=== PATIENT | female | born 1990 | race African-American/Black ===

== ENCOUNTER 2023-06-05 21:25 | Outpatient (REF) | payer OTHER, SELFPAY ==
[2023-06-10 12:08] LABS: Age Gdln ACOG Testing Note (.); HPV Aptima Negative (Negative); IGP, Aptima HPV, rfx 16/18,45 Note (.)
== END 2023-06-05 21:26 | disposition home or self-care (01) ==
LOC: LAB 21:25
PROVIDERS: Visit Provider Physician Assistant
DX: Z01.419 Encounter for gynecological examination (general) (routine) without abnormal findings (principal)
CPT/HCPCS: G0145

== ENCOUNTER 2024-07-22 09:04 | Emergency (ER) | payer OTHER, SELFPAY ==
[2024-07-22 09:10] VITALS: BP 136/85; PULSE 103; TEMP 36.6; O2SAT 98; BMI 32.8
--- NOTE | 2024-07-22 09:25 | US_ITS ---
[address] [address] Patient Name: ISAC CORONA MRN: [id number] date: 1990 Sex: F Assigned Patient Location: ER Current Patient Location: ER Accession/Order Number: [id number] Exam Date: 07/22/2024 09:30 Report Date: 07/22/2024 10:21 At the request of: RICK SAMANIEGO Procedure: US right upper quadrant EXAM: US right upper quadrant HISTORY: RUQ pain COMPARISON: None. TECHNIQUE: Grayscale, color and Doppler FINDINGS: The liver is normal in size, contour and echotexture. No focal mass. Hepatopedal flow in the main portal vein with a velocity of 40 cm/s. The visualized gallbladder is normal. The wall measures 1.1 mm. Negative sonographic Emanuel sign. The common bile duct measures 3.2 mm. No cholelithiasis The visualized pancreas is normal. The pancreatic head is not visualized due to bowel gas The right kidney is normal measuring 9.7 x 3.7 x 4.5 cm US/US right upper quadrant IMPRESSION: No acute abnormality Electronically authenticated by: JACIEL CEJA Date: 07/22/2024 10:21
--- NOTE | 2024-07-22 09:36 | ED_ITS ---
HPI HPI - General Adult General Chief complaint: Abdominal Pain Stated complaint: ABDOMINAL PAIN Time Seen by Provider: 07/22/24 09:13 Source: patient Mode of arrival: walk-in Limitations: no limitations History of Present Illness HPI narrative: Patient presents ED complaining of upper abdominal pain and slight right upper quadrant pain. She said it started yesterday and has been causing some nausea but no vomiting. She states she has never really had this before. No history of GERD. She is not on any acid inhibitors or nausea medication. She does have a history of a but no other abdominal surgeries. She still has her appendix and her gallbladder. She said the pain hurts worse if she pushes on it or takes a deep breath. No fever. She said it started yesterday sort of out of the blue, not specifically after eating or anything like that that she can remember. Related Data Previous Rx's ?Medication ?Instructions ?Recorded famotidine 20 mg tablet (Pepcid) 20 mg PO DAILY 14 days #14 tabs 07/22/24 Allergies Allergy/AdvReac Type Severity Reaction Status Date / Time guaifenesin (From Robitussin) AdvReac Intermediate Hives Verified 07/22/24 09:14 Opioid HPI Opioid Management Most Recent Opioid Data: No Data to Display Review of Systems ROS Status of ROS 10 or more systems reviewed and unremark able except as noted in history and below PFSH PFSH Social History Little interest or pleasure in doing things: not at all Feeling down, depressed, or hopeless: not at all Exam Narrative Exam Narrative: General: alert, no acute distress Cardiovascular: regular rate and rhythm, normal peripheral perfusion. Respiratory: Lungs CTA, respirations non labored. Extremities: no deformity, no trauma. Neurological: oriented x 4, LOC appropriate for age. Abdomen soft. Mild epigastric tenderness mild right upper quadrant tenderness. No rebound no guarding Constitutional Vital Signs, click to edit/add: Last Vital Signs Temp 98 F 07/22/24 09:10 Pulse 76 07/22/24 10:26 Resp 18 07/22/24 10:26 BP 116/72 07/22/24 10:26 Pulse Ox 100 07/22/24 10:26 O2 Del Method Room Air 07/22/24 09:10 Course Vital Signs Vital signs: Vital Signs Temperature 98 F 07/22/24 09:10 Pulse Rate 103 H 07/22/24 09:10 Respiratory Rate 18 07/22/24 09:10 Blood Pressure 136/85 07/22/24 09:10 Pulse Oximetry 98 07/22/24 09:10 Oxygen Delivery Method Room Air 07/22/24 09:10 Temperature 98 F 07/22/24 09:10 Pulse Rate 76 07/22/24 10:26 Respiratory Rate 18 07/22/24 10:26 Blood Pressure 116/72 07/22/24 10:26 Pulse Oximetry 100 07/22/24 10:26 Oxygen Delivery Method Room Air 07/22/24 09:10 Medical Decision Making MDM Narrative Medical decision making narrative: Patient's labs and imaging are negative for acute findings. Patient does not have any evidence of cholecystitis or kidney stone. Labs are negative for any acute findings. Possibly gastritis. Will trial patient on 2 weeks of Pepcid to see if it helps. Return to ED if worsening symptoms otherwise follow-up with family doctor. Patient's comfortable care plan for home Differential Diagnosis Differential Diagnosis: Acute cholecystitis, gastritis, peptic ulcer disease, GERD, kidney stone, p Medical Records Medical records reviewed: Yes I reviewed the patient's medical records Lab Data Lab results reviewed: Yes I reviewed the patient's lab results Labs: Lab Results 07/22/24 07/22/24 Range/Units 09:20 09:35 WBC 4.4 (4.0-11.0) 10^3/uL RBC 4.63 (4.20-5.40) 10^6/uL Hgb 14.6 (12.0-16.0) g/dL Hct 43.7 (36.0-48.0) % MCV 94.4 (81.0-99.0) fL MCH 31.5 (26.7-34.0) pg MCHC 33.4 (29.9-35.2) g/dL RDW 12.0 (11.0-15.0) % Plt Count 284 (150-450) 10^3/uL MPV 10.6 (9.5-13.5) fL Neut % (Auto) 58.7 (43.0-75.0) % Lymph % (Auto) 32.7 (20.5-60.0) % [place] % (Auto) 6.6 (1.7-12.0) % Eos % (Auto) 1.6 (0.9-7.0) % Baso % (Auto) 0.2 (0.2-2.0) % Neut # (Auto) 2.6 (1.4-6.5) 10^3/uL Lymph # (Auto) 1.4 (1.2-3.8) 10^3/uL [place] # (Auto) 0.3 (0.3-0.8) 10^3/uL Eos # (Auto) 0.1 (0.0-0.7) 10^3/uL Baso # (Auto) 0.0 (0.0-0.1) 10^3/uL Abs Immat Gran (auto) 0.01 (0.00-0.03) 10^3/uL Imm/Tot Granulo (auto) 0.2 (0.0-0.5) % Sodium 140 (136-145) mmol/L Potassium 3.9 (3.5-5.1) mmol/L Chloride 105 (98-107) mmol/L Carbon Dioxide 23.1 (21.0-32.0) mmol/L Anion Gap 15.8 BUN 9.0 (7.0-18.0) mg/dL Creatinine 0.96 (0.55-1.02) mg/dL Est GFR ( Amer) >60 (>=60 mL/min/1.73m^2) Est GFR (Non-Af Amer) >60 (>=60 mL/min/1.73m^2) BUN/Creatinine Ratio 9.4 Glucose 81 (74-106) mg/dL Calcium 8.4 L (8.5-10.1) mg/dL Total Bilirubin 0.6 (0.2-1.0) mg/dL AST 18 (15-37) U/L ALT 32 (14-59) U/L Alkaline Phosphatase 71 (46-116) U/L Total Protein 7.8 (6.4-8.2) g/dL Albumin 3.5 (3.4-5.0) g/dL Globulin 4.3 g/dL Albumin/Globulin Ratio 0.8 Urine Color Yellow (YELLOW) Urine Clarity Clear (CLEAR) Urine pH 6.5 (5.0-9.0) Ur Specific [place] 1.025 (1.005-1.025) Urine Protein Negative (NEG/TRACE) mg/dL Urine Glucose (UA) Negative (NEGATIVE) mg/dL Urine Ketones Trace A (NEGATIVE) mg/dL Urine Occult Blood Negative (NEGATIVE) Urine Nitrite Negative (NEGATIVE) Urine Bilirubin Negative (NEGATIVE) Urine Urobilinogen 1.0 (0.2-1.0) EU/dL Ur Leukocyte Esterase Negative (NEGATIVE) Urine HCG, Qual Negative (NEGATIVE) Imaging Data US - abdomen: Radiologist's impression: ITS Impressions Upper Quadrant Ultrasound 07/22/24 09:25 IMPRESSION: No acute abnormality Electronically authenticated by: JACIEL CEJA Date: 07/22/2024 10:21 Discharge Plan Discharge Chief Complaint: Abdominal Pain Clinical Impression: Gastritis Patient Disposition: Home, Self-Care Time of Disposition Decision: 10:31 Condition: Good Mode of Transportation: Private Vehicle Prescriptions / Home Meds: New famotidine [Pepcid] 20 mg tablet 20 mg PO DAILY 14 Days Qty: 14 0RF Print Language: [place] Instructions: Gastritis (ED) Referrals: Physician,Non-Staff, MD [Physician] - 1 week
[2024-07-22 09:52] LABS: Basophils Percent Auto 0.2 % (0.2-2.0); Eosinophils Absolute Auto 0.1 10^3/uL (0.0-0.7); Eosinophils Percent Auto 1.6 % (0.9-7.0); Hematocrit 43.7 % (36.0-48.0); Hemoglobin 14.6 g/dL (12.0-16.0); Immature Granulocytes Abs Auto 0.01 10^3/uL (0.00-0.03); Immature Granulocytes Pct Auto 0.2 % (0.0-0.5); Lymphocytes Absolute Auto 1.4 10^3/uL (1.2-3.8); Lymphocytes Percent Auto 32.7 % (20.5-60.0); Mean Corpuscular HGB Conc 33.4 g/dL (29.9-35.2); Mean Corpuscular Hemoglobin 31.5 pg (26.7-34.0); Mean Corpuscular Volume 94.4 fL (81.0-99.0); Mean Platelet Volume 10.6 fL (9.5-13.5); Monocytes Absolute Auto 0.3 10^3/uL (0.3-0.8); Monocytes Percent Auto 6.6 % (1.7-12.0); Neutrophils Absolute Auto 2.6 10^3/uL (1.4-6.5); Neutrophils Percent Auto 58.7 % (43.0-75.0); Platelet Count 284 10^3/uL (150-450); Red Blood Count 4.63 10^6/uL (4.20-5.40); White Blood Count 4.4 10^3/uL (4.0-11.0)
[2024-07-22 09:55] LABS: HCG Qualitative Urine* NEGATIVE (NEGATIVE); Internal Control Within Normal Limits
[2024-07-22 09:56] LABS: Bilirubin Urine NEGATIVE (NEGATIVE); Blood Urine NEGATIVE (NEGATIVE); Clarity Urine CLEAR (CLEAR); Color Urine YELLOW (YELLOW); Glucose Urine UA NEGATIVE (NEGATIVE); Ketones Urine TRACE mg/dL (NEGATIVE); Leukocyte Esterase Urine NEGATIVE (NEGATIVE); Nitrite Urine NEGATIVE (NEGATIVE); Protein Urine NEGATIVE (NEG/TRACE); Specific Gravity Urine 1.025 (1.005-1.025); Urine Microscopic Indicated NO; pH Urine 6.5 (5.0-9.0)
[2024-07-22 10:09] LABS: Alanine Aminotransferase 32 U/L (14-59); Albumin Globulin Ratio 0.8; Albumin Level 3.5 g/dL (3.4-5.0); Alkaline Phosphatase 71 U/L (46-116); Anion Gap 15.8; Aspartate Amino Transferase 18 U/L (15-37); BUN Creatinine Ratio 9.4; Bilirubin Total 0.6 mg/dL (0.2-1.0); Calcium 8.4 mg/dL (8.5-10.1); Carbon Dioxide 23.1 mmol/L (21.0-32.0); Chloride 105 mmol/L (98-107); Estimated GFR (African America >60 (>=60 mL/min/1.73m^2); Estimated GFR (Non-African Ame >60 (>=60 mL/min/1.73m^2); Globulin 4.3 g/dL; Glucose 81 mg/dL (74-106); Potassium 3.9 mmol/L (3.5-5.1); Sodium 140 mmol/L (136-145); Total Protein 7.8 g/dL (6.4-8.2)
[2024-07-22 10:26] VITALS: BP 116/72; PULSE 76; O2SAT 100
== END 2024-07-22 10:39 | disposition home or self-care (01) ==
PROVIDERS: Emergency Provider Emergency Medicine
DX: K29.70 Gastritis, unspecified, without bleeding (principal)
CPT/HCPCS: 36415; 76705; 80053; 81003; 83690; 84703; 85025; 99284

== ENCOUNTER 2024-12-15 08:41 | Emergency (ER) | payer SELFPAY ==
[2024-12-15 08:46] VITALS: BP 128/82; PULSE 80; TEMP 36.7; O2SAT 99; BMI 33.7
--- NOTE | 2024-12-15 08:52 | ED.GENADUL1 ---
HPI HPI - General Adult General Chief complaint: Back Pain/Injury Stated complaint: BACK PAIN Time Seen by Provider: 12/15/24 08:49 Source: patient Mode of arrival: walk-in Limitations: no limitations History of Present Illness HPI narrative: 34-year-old female presents for bilateral lower back pain. She has had it for 5 days and there is been no precipitating injury or unusual activity. No dysuria or hematuria and the pain does not radiate into her legs. She does not have a history of back issues. It is worse in certain positions and moderate. Related Data Previous Rx's ?Medication ?Instructions ?Recorded etodolac 400 mg tablet 400 mg PO Q8H PRN pain #20 tabs 12/15/24 methocarbamol 750 mg tablet 750 mg PO Q8H #20 tabs 12/15/24 Allergies Allergy/AdvReac Type Severity Reaction Status Date / Time guaifenesin (From Robitussin) AdvReac Intermediate Hives Verified 12/15/24 08:51 Opioid HPI Opioid Management Most Recent Opioid Data: No Data to Display Review of Systems ROS Narrative A ten point review of systems is negative except as noted above. PFSH PFSH Social History Little interest or pleasure in doing things: not at all Feeling down, depressed, or hopeless: not at all Exam Narrative Exam Narrative: Nurses note and vital signs reviewed and patient is not hypoxic. General: The patient sitting upright on the cart. Skin: Warm, dry, no pallor noted. There is no rash noted. Head: Normocephalic, atraumatic Eye: Normal conjunctiva, no drainage Ears, Nose, Mouth, and Throat: oral mucosa is moist. Nares patent. Cardiovascular: Regular Rate and Rhythm Respiratory: Patient is in no distress, no accessory muscle use, lungs are clear to auscultation, no wheezing, rales or rhonchi Back: No bruise or rash or palpable tenderness GI: Soft and nontender Musculoskeletal: No joint swelling Neurological: A&O, normal speech Psychiatric: Cooperative Constitutional Vital Signs, click to edit/add: Last Vital Signs Temp 98.1 F 12/15/24 08:46 Pulse 80 12/15/24 08:46 Resp 20 12/15/24 08:46 BP 128/82 12/15/24 08:46 Pulse Ox 99 12/15/24 08:46 O2 Del Method Room Air 12/15/24 08:46 Course Vital Signs Vital signs: Vital Signs Temperature 98.1 F 12/15/24 08:46 Pulse Rate 80 12/15/24 08:46 Respiratory Rate 20 12/15/24 08:46 Blood Pressure 128/82 12/15/24 08:46 Pulse Oximetry 99 12/15/24 08:46 Oxygen Delivery Method Room Air 12/15/24 08:46 Temperature 98.1 F 12/15/24 08:46 Pulse Rate 80 12/15/24 08:46 Respiratory Rate 20 12/15/24 08:46 Blood Pressure 128/82 12/15/24 08:46 Pulse Oximetry 99 12/15/24 08:46 Oxygen Delivery Method Room Air 12/15/24 08:46 Medical Decision Making MDM Narrative Medical decision making narrative: Her workup is negative. X-rays show no acute process and the minimal amount of blood in her urine is from her period. She is not . She is given IM Toradol and prescribed Lodine and Robaxin. Treatment diagnosis and follow-up were discussed with the patient. Differential Diagnosis Differential Diagnosis: UTI, lumbar strain, compression fracture Lab Data Lab results reviewed: Yes I reviewed the patient's lab results Labs: Lab Results 12/15/24 Range/Units 08:55 Urine Color Yellow (YELLOW) Urine Clarity Clear (CLEAR) Urine pH 6.0 (5.0-9.0) Ur Specific [place] >=1.030 A (1.005-1.025) Urine Protein Negative (NEG/TRACE) mg/dL Urine Glucose (UA) Negative (NEGATIVE) mg/dL Urine Ketones Negative (NEGATIVE) mg/dL Urine Occult Blood Moderate A (NEGATIVE) Urine Nitrite Negative (NEGATIVE) Urine Bilirubin Negative (NEGATIVE) Urine Urobilinogen 0.2 (0.2-1.0) EU/dL Ur Leukocyte Esterase Negative (NEGATIVE) Urine RBC 5-10 A (0-2) #/HPF Urine WBC 0-2 A (NONE SEEN) #/HPF Ur Squamous Epith Cells Few A (NONE/RARE) #/LPF Urine Crystals None seen (None Seen) #/HPF Urine Bacteria Trace A (NONE SEEN) #/HPF Urine Casts None seen (NONE SEEN) #/LPF Urine Mucus Small A (NONE SEEN) Urine HCG, Qual Negative (NEGATIVE) Imaging Data Lumbar x-rays: Radiologist's impression: No acute process Discharge Plan Discharge Chief Complaint: Back Pain/Injury Clinical Impression: Low back pain Patient Disposition: Home, Self-Care Time of Disposition Decision: 09:36 Condition: Good Mode of Transportation: Private Vehicle Prescriptions / Home Meds: New methocarbamol 750 mg tablet 750 mg PO Q8H Qty: 20 0RF etodolac 400 mg tablet 400 mg PO Q8H PRN (Reason: pain) Qty: 20 0RF Print Language: Cypriot Instructions: Acute Low Back Pain (ED) Referrals: [facility] [place] [Primary Care Provider] - 1 week
[2024-12-15 09:05] LABS: Bilirubin Urine NEGATIVE (NEGATIVE); Blood Urine MODERATE (NEGATIVE); Clarity Urine CLEAR (CLEAR); Color Urine YELLOW (YELLOW); Glucose Urine UA NEGATIVE (NEGATIVE); Ketones Urine NEGATIVE (NEGATIVE); Leukocyte Esterase Urine NEGATIVE (NEGATIVE); Nitrite Urine NEGATIVE (NEGATIVE); Protein Urine NEGATIVE (NEG/TRACE); Specific Gravity Urine >=1.030 (1.005-1.025); Urobilinogen Urine 0.2 EU/dL (0.2-1.0)
[2024-12-15 09:08] LABS: HCG Qualitative Urine* NEGATIVE (NEGATIVE); Internal Control Within Normal Limits
[2024-12-15 09:11] LABS: WBC Urine 0-2 #/HPF (NONE SEEN)
[2024-12-15 09:12] LABS: Bacteria Urine TRACE #/HPF (NONE SEEN); Mucus Urine SMALL (NONE SEEN); Squamous Epithelial Cell Urine FEW #/LPF (NONE/RARE)
[2024-12-15 09:13] LABS: Cast Seen? NONE SEEN #/LPF (NONE SEEN); Crystals Seen? None Seen #/HPF (None Seen)
--- OUTSIDE RECORDS SUMMARY | 2024-12-15 09:29 | XMS_ITS | CCD ---
Author Organization [facility] Care Team Providers Care [employer] Driver Name Role Phone ZAY, DR FARIA Admitting Unavailable REQUEST, DR RICHARD LISTED Primary Care Unavaila ble ZAY, DR FARIA Attending Unavailable ZAY, DR FARIA Attending Unavailable ZAY, DR FARIA Consulting Unavailable REQUEST, DR JOSE MANUEL LISTED Primary Care Unavaila ble ZAY, DR FARIA Admitting Unavailable ZAY, DR FARIA Consulting Unavailable ZAY, DR FARIA Admitting Unavailable REQUEST, DR RICHARD LISTED Primary Care Unavaila ble ZAY, DR FARIA Attending Unavailable Unavailable Primary Care Provider UnavailBIENVENIDO Whyte Attending Unavailable ZAY, BIENVENIDO Attending Unavailable OPHELIABOBY PHAM Attending Unavailable Allergies Allergy Classification Reported Allergen(s) Allergy Type Date of Onset Reaction(s) Facility (2 sources) Robitussin Cough AND Cold Drug allergy (disorder) 4 [facility] Repository (2 sources) Dextromethorphan Drug Allergy 5 Rash [facility] Healthcare (2 sources) guaiFENesin Drug Allergy 7 Itching [facility] Medications Current Medications Medication Drug Class(es) Dates Sig (Normalized) Sig (Original) 24 hr metFORMIN hydrochloride 500 mg extended release oral tablet (2 sources) Biguanide Start: 10-30-2023 End: 10-29-2024 take 1 tablet by mouth every twenty-four hours at mealtime metFORMIN XR (Glucophage-XR) 500 MG 24 hr tablet Indications: PCOS (polycystic ovarian syndrome) , Insulin resistance Take 1 tablet (500 mg) by mouth in the evening. Take with meals Do not crush, chew, or split. 30 tablet 11 10/30/2023 10/29/2024 Active Completed/Discontinued Medications Medication Drug Class(es) Dates Sig (Normalized) Sig (Original) citalopram 20 mg oral tablet (2 sources) Serotonin Reuptake Inhibitor Start: 06-05-2023 End: 10-30-2023 take 1 tablet by mouth in the morning citalopram (CeleXA) 20 MG tablet Indications: Depression with anxiety Take 1 tablet (20 mg) by mouth in the morning. 30 tablet 11 06/05/2023 10/30/2023 Discontinued (Other) omeprazole 20 mg delayed release oral capsule (2 sources) Proton Pump Inhibitor Start: 07-04-2023 End: 10-30-2023 omeprazole (PriLOSEC) [address] capsule 1 (one) time each day at the same time 0 07/04/2023 10/30/2023 Discontinued (Other) Problems Active Problems Problem Classification Problem Date Documented Da te Episodic/Chronic Contraceptive and procreative management (8 sources) Encounter for procreative management, unspecified; Translations: [Patient encounter status] Onset: 07-09-2022 Episodic Other endocrine disorders (2 sources) Polycystic ovary syndrome; Translations: [Polycystic ovarian syndrome] 10-30-2023 Chronic Other nutritional; endocrine; and metabolic disorders (2 sources) Insulin resistance; Translations: [Insulin resistance] 10-30-2023 Chronic Past or Other Problems Problem Classification Problem Date Documented Date Episodic/Chronic Immunizations and screening for infectious disease (1 source) Encounter for screening for human papillomavirus (HPV); Translations: [ENC SCREENING HUMAN PAPILLOMAVIRUS] Onset: 03-28-2022 Episodic Other screening for suspected conditions (not mental disorders or infectious disease) (4 sources) Encounter for screening for malignant neoplasm of cervix; Translations: [ENC SCREENING MALIG NEOPLASM CERV] Onset: 2022 Episodic Results Test Name Value Interpretation Reference Range Facility DHEA SERUMon 07-12-2022 Dehydroepiandrosterone (DHEA) 339 ng/dL Normal 31-701 [facility] Comment on above: Result Comment: Age 1 - 5 years 0 - 67 6 - 7 years 0 - 110 8 - 10 years 0 - 185 11 - 12 years 0 - 201 13 - 14 years 0 - 318 15 - 16 years 39 - 481 17 - 19 years 40 - 491 >19 years 31 - 701 Performed By: #### D PHAN. #### [facility] [address] [place] [address] Dr. Myrtle Riggs DHEA-SULFATEon 07-10-2022 DHEA-Sulfate 415.0 ug/dL Critically high 84.8-378.0 [facility] Comment on above: Performed By: #### D NIKKI #### [facility] [address] [place] [address] Dr. Myrtle Riggs FSHon 07-10-2022 FSH 13.4 mIU/mL Normal [facility] Comment on above: Result Comment: Adul t Female: Follicular phase 3.5 - 12.5 Ovulation phase 4.7 - 21.5 Luteal phase 1.7 - 7.7 Postmenopausal 25.8 - 134.8 Performed By: #### [facility] #### [facility] [address] [place] [address] Dr. Myrtle Riggs LUTEINIZING HORMONE (LH)on LH 9.8 mIU/mL Normal [facility] Comment on above: Result Comment: Adul t Female: Follicular phase 2.4 - 12.6 Ovulation phase 14.0 - 95.6 Luteal phase 1.0 - 11.4 Postmenopausal 7.7 - 58.5 Performed By: #### L BCL #### [facility] [address] [place] [address] Dr. Myrtle Riggs CBC AUTO DIFFon 07-09-2022 BASO # 0.0 103/ul Normal 0.0-0.1 [facility] Comment on above: Performed By: #### C BC #### [facility] [address] [place] [address] Dr. Myrtle Riggs Basophils/100 WBC (Bld) 0.3 % Normal 0.2-2.0 [facility] Comment on above: Performed By: #### C BC #### [facility] [address] [place] [address] Dr. Myrtle Riggs EO # 0.1 103/ul Normal 0.0-0.7 [facility] Comment on above: Performed By: #### C BC #### [facility] [address] [place] [address] Dr. Myrtle Riggs Eosinophils/100 WBC (Bld) 2.5 % Normal 0.9-7.0 [facility] Comment on above: Performed By: #### C BC #### [facility] [address] [place] [address] Dr. Myrtle Riggs Erythrocyte distribution width (RBC) [Ratio] 12.5 % Normal 11.0-15.0 [facility] Comment on above: Performed By: #### C BC #### [facility] [address] [place] [address] Dr. Myrtle Riggs Hematocrit (Bld) [Volume fraction] 40.8 % Normal 36.0-48.0 [facility] Comment on above: Performed By: #### C BC #### [facility] [address] [place] [address] Dr. Myrtle Riggs Hemoglobin (Bld) [Mass/Vol] 13.5 g/dL Normal 12.0-16.0 [facility] Comment on above: Performed By: #### C BC #### [facility] [address] [place] [address] Dr. Myrtle Riggs IG # 0.01 10e3/ul Normal 0.00-0.03 [facility] Comment on above: Performed By: #### C BC #### [facility] [address] [place] [address] Dr. Myrtle Riggs IG % 0.3 % Normal 0.0-0.5 [facility] Comment on above: Performed By: #### C BC #### [facility] [address] [place] [address] Dr. Myrtle Riggs LYMPH # 1.4 103/ul Normal 1.2-3.8 [facility] Comment on above: Performed By: #### C BC #### [facility] [address] [place] [address] Dr. Myrtle Riggs Lymphocytes/100 WBC (Bld) 36.2 % Normal 20.5-60.0 [facility] Comment on above: Performed By: #### C BC #### [facility] [address] [place] [address] Dr. Myrtle Riggs MANUAL DIFF REQ NO Normal [facility] Comment on above: Performed By: #### C BC #### [facility] [address] [place] [address] Dr. Myrtle Riggs MCH (RBC) [Entitic mass] 31.7 pg Normal 26.7-34.0 [facility] Comment on above: Performed By: #### C BC #### [facility] [address] [place] [address] Dr. Myrtle Riggs MCHC (RBC) [Mass/Vol] 33.1 g/dL Normal 29.9-35.2 [facility] Comment on above: Performed By: #### C BC #### [facility] [address] [place] [address] Dr. Myrtle Riggs MCV (RBC) [Entitic vol] 95.8 fL Normal 81.0-99.0 [facility] Comment on above: Performed By: #### C BC #### [facility] [address] [place] [address] Dr. Myrtle Riggs MONO # 0.4 103/ul Normal 0.3-0.8 [facility] Comment on above: Performed By: #### C BC #### [facility] [address] [place] [address] Dr. Myrtle Riggs Monocytes/100 WBC (Bld) 9.6 % Normal 1.7-12.0 [facility] Comment on above: Performed By: #### C BC #### [facility] [address] [place] [address] Dr. Myrtle Riggs NEUT # 2.0 103/ul Normal 1.4-6.5 [facility] Comment on above: Performed By: #### C BC #### [facility] [address] [place] [address] Dr. Myrtle Riggs Neutrophils/100 WBC (Bld) 51.1 % Normal 43.0-75.0 [facility] Comment on above: Performed By: #### C BC #### [facility] [address] [place] [address] Dr. Myrtle Riggs Platelet mean volume (Bld) [Entitic vol] 10.6 fL Normal 9.5-13.5 [facility] Comment on above: Performed By: #### C BC #### [facility] [address] [place] [address] Dr. Myrtle Riggs PLT 297 103/ul Normal 150-450 [facility] Comment on above: Performed By: #### C BC #### [facility] [address] [place] [address] Dr. Myrtle Riggs RBC 4.26 106/ul Normal 4.20-5.40 [facility] Comment on above: Performed By: #### C BC #### [facility] [address] [place] [address] Dr. Myrtle Riggs WBC 4.0 103/ul Normal 4.0-11.0 [facility] Comment on above: Performed By: #### C BC #### [facility] [address] [place] [address] Dr. Myrtle Riggs FREE T4on 07-09-2022 Free T4 [Mass/Vol] 1.00 ng/dL Normal 0.76-1.46 [facility] Comment on above: Performed By: #### F T4 #### [facility] [address] [place] [address] Dr. Myrtle Riggs GLYCOHEMOGLOBIN A1Con 2021 ADA RECOMMENDATION SEE BELOW Normal [facility] Comment on above: Result Comment: ADA RECOMMENDED LIMIT 4.0 - 6.0 ADA THERAPEUTIC TARGET < 7.0 ACTION SUGGESTED > 7.0 Performed By: #### A 1C #### [facility] [address] [place] [address] Dr. Myrtle Riggs Glucose [Mass/Vol] 111 mg/dL Normal [facility] Comment on above: Performed By: #### A 1C #### [facility] [address] [place] [address] Dr. Myrtle Riggs HbA1c (Bld) [Mass fraction] 5.5 % Normal 4.5-6.2 [facility] Comment on above: Performed By: #### A 1C #### [facility] [address] [place] [address] Dr. Myrtle Riggs TSHon 07-09-2022 TSH 0.331 uIU/mL Critically low 0.358-3.740 [facility] Comment on above: Performed By: #### T SH #### [facility] [address] [place] [address] Dr. Myrtle Riggs PAP ACOG PANEL 2: 30 to 65on 03-30-2022 . . Normal [facility] Comment on above: Result Comment: Perf ormed at: WB Performed By: #### [id number] #### [facility] [address] [place] [address] Dr. Myrtle Riggs Age Gdln ACOG Testing 30-65 Normal [facility] Comment on above: Performed By: #### [id number] #### [facility] [address] [place] [address] Dr. Myrtle Riggs DIAGNOSIS: Comment Normal [facility] Comment on above: Result Comment: NEGA TIVE FOR INTRAEPITHELIAL LESION OR MALIGNANCY. REACTIVE CELLULAR CHANGES AND/OR REPAIR ARE PRESENT. Performed at: WB Performed By: #### [id number] #### [facility] [address] [place] [address] Dr. Myrtle Riggs Electronically signed by: Comment Normal [facility] Comment on above: Result Comment: Latonya Mensah MD, Pathologist Performed at: WB Performed By: #### [id number] #### [facility] [address] [place] [address] Dr. Myrtle Riggs HPV Aptima Negative Normal Negative [facility] Comment on above: Result Comment: This nucleic acid amplification test detects fourteen high-risk HPV types (16,18,31,33,35,39,45,51,52,56,58,59,66,68) without differentiation. Performed at: =G Performed By: #### [id number] #### [facility] [address] [place] [address] Dr. Myrtle Riggs Methodology: Comment Normal [facility] Comment on above: Result Comment: This liquid based ThinPrep(R) pap test was screened with the use of an image guided system. Performed at: WB Performed By: #### [id number] #### [facility] [address] [address] [address] Myrtle Riggs Note: Comment Normal [facility] Comment on above: Result Comment: The Pap smear is a screening test designed to aid in the detection of premalignant and malignant conditions of the uterine cervix. It is not a diagnostic procedure and should not be used as the sole means of detecting cervical cancer. Both false-positive and false-negative reports do occur. . Performed at: WB Performed By: #### [id number] #### [facility] [address] [address] [address] Myrtle Riggs Performed by: Comment Normal [facility] Comment on above: Result Comment: Phyllis Feliz, [employer] Program Director (ASCP) Performed at: WB Performed By: #### [id number] #### [facility] [address] [place] [address] Dr. Myrtle Riggs Specimen adequacy: Comment Normal [facility] Comment on above: Result Comment: Sati sfactory for evaluation. Endocervical and/or squamous metaplastic cells (endocervical component) are present. Performed at: WB Performed By: #### [id number] #### [facility] [address] [address] [address] Myrtle Riggs Vital Signs Date Time Vital Sign Value Performing Clinician Allan jurado 10-30-2023 11:36-0500 Body mass index (BMI) [Ratio] 33.98 kg/m2 [employer] Work Phone: [facility] 10-30-2023 11:36-0500 Body weight 84.28 kg Bienvenido Zay DO Work Phone: [facility] 10-30-2023 11:36-0500 Diastolic blood pressure 74 mm[Hg] [employer] Zay DO Work Phone: [facility] 10-30-2023 11:36-0500 Systolic blood pressure 112 mm[Hg] Bienvenido Zay DO Work Phone: [facility] Healthcare Encounters Encounter Date Encounter Type Care Provider Facility Start: 01-06-2024 End: 01-06-2024 ambulatory BOBY JACINTO Not Available Start: 12-09-2023 End: 12-09-2023 ambulatory BIENVENIDO COLLAZO Not Available Start: 10-30-2023 End: 10-30-2023 ambulatory BIENVENIDO COLLAZO Not Available Start: 10-30-2023 End: 10-30-2023 Office outpatient visit 15 minutes Bienvenido Collazo DO Work Phone: [facility] Comment on above: Encounter for fertil ity planning; PCOS (polycystic ovarian syndrome); Insulin resistance Start: 07-09-2022 End: 07-10-[address] BIENVENIDO COLLAZO Facility:[facility] Start: 06-13-[address] BIENVENIDO COLLAZO Facility :[facility] Start: 2022 End: [address] BIENVENIDO COLLAZO Facility:[facility] Plan of Treatment Date Care Activity Detail Author Start: 06-08-2024 End: 06-08-2024 Patient encounter procedure 06/08/2024 1:00 PM EDT Office Visit [facility] [address] [place] [place] [address] Bienvenido Collazo, DO [address] [place] [address] [facility] Start: 10-30-2023 End: 10-30-2024 DHEA DHEA Lab Routine PCOS (polycystic ovarian syndrome) Expected: 10/30/2023 (Approximate), Expires: 10/30/2024 [facility] Comment on above: Expected: 10/30/2023 (Approximate), Expires: 10/30/2024 CBC W Auto Different ial panel - Blood CBC and differential Lab Routine PCOS (polycystic ovarian syndrome) Ordered: 10/30/2023 [facility] Comment on above: Ordered: 10/30/2023 DHEA-sulfate DHEA-sulfate Lab Routine PCOS (polycystic ovarian syndrome) Ordered: 10/30/2023 [facility] Comment on above: Ordered: 10/30/2023 Follicle stimulating hormone Follicle stimulating hormone Lab Routine PCOS (polycystic ovarian syndrome) Ordered: 10/30/2023 [facility] Comment on above: Ordered: 10/30/2023 hCG, quantitative, hCG, quantitative, Lab Routine PCOS (polycystic ovarian syndrome) Ordered: 10/30/2023 [facility] Work Phone: Comment on above: Ordered: 10/30/2023 Hemoglobin A1c/Hemoglobin.total in Blood Hemoglobin A1c Lab Routine PCOS (polycystic ovarian syndrome) Ordered: 10/30/2023 [facility] Comment on above: Ordered: 10/30/2023 Luteinizing hormone Luteinizing hormone Lab Routine PCOS (polycystic ovarian syndrome) Ordered: 10/30/2023 [facility] Comment on above: Ordered: 10/30/2023 Thyrotropin [Units/volume] in Serum or Plasma TSH Lab Routine PCOS (polycystic ovarian syndrome) Ordered: 10/30/2023 [facility] Comment on above: Ordered: 10/30/2023 Thyroxine (T4) free [Mass/volume] in Serum or Plasma T4, free Lab Routine PCOS (polycystic ovarian syndrome) Ordered: 10/30/2023 [facility] Comment on above: Ordered: 10/30/2023 Payers Date Payer Category Payer Medicaid [employer] [place] [id number] 2022-Present [address] [place] [address] [id number] 2022 Medicaid [id number] 1989 Unknown [id number] 1989 Unknown [id number] 1989 Unknown [id number] 1989 Unknown [id number] 1989 Unknown [id number] 1989 Unknown [id number] 1959 Self-pay [id number] 1960 Unknown [id number] Social History Date Type Detail Facility Start: 04-15-[address] [facility] History of tobacco use [facility] Start: 04-15-2023 Cigarettes smoked cu rrent (pack per day) - Reported 1 [facility] Start: 10-30-2023 Alcohol intake Current drinke r of alcohol (finding) [facility] Start: 04-15-2023 Tobacco use panel [facility] Start: 09-23-2023 Alcohol Comment 6 or more mark felix on 1 occasion; weekly [facility] Start: 1990 Sex Assigned At Not on file [facility] History of Present illness Narrative 10-30-2023 Jannettenatalie Lowe LPN - 10/30/2023 11:20 AM EST Note Date & Type Note Facility 10-30-2023 History of Presen t illness Narrative Reason for Appointment: Patient ID: Rere Corona is a 33 y.o. female who presents for Infertility Patient presents today for Fertility Follow Up appointment. Current Medications: currently has no medications in their medication list. Medical History: Active Ambulatory Problems Diagnosis Date Noted Encounter for infertility 10/10/2023 Resolved Ambulatory Problems Diagnosis Date Noted No Resolved Ambulatory Problems No Additional Past Medical History Family History Problem Relation Name Age of Onset Cancer Mother Cancer Father Social History Tobacco Use Smoking status: Every Day Packs/day: 1 Types: Cigarettes Smokeless tobacco: Not on file Substance Use Topics Alcohol use: Yes Comment: 6 or more drinks on 1 occasion; weekly Drug use: Never Past Surgical History: Procedure Laterality Date SECTION, LOW TRANSVERSE x2 DILATION AND CURETTAGE XR HYSTEROSALPINGOGRAM 2019 Allergies Allergen Reactions Guaifenesin Itching Dextromethorphan Polistirex Er Rash Other Reaction(s): Hives Review of Systems: Review of Systems Constitutional: Negative. HENT: Negative. Eyes: Negative. Respiratory: Negative. Cardiovascular: Negative. Gastrointestinal: Negative. Genitourinary: Negative. Musculoskeletal: Negative. Skin: Negative. Neurological: Negative. All other systems reviewed and are negative. Hematological: Negative. Endocrine: Negative. Allergic/Immunologic: Negative. Objective Physical Exam Constitutional: Appearance: Normal appearance. She is well-developed. Cardiovascular: Rate and Rhythm: Normal rate and regular rhythm. Pulmonary: Effort: Pulmonary effort is normal. Breath sounds: Normal breath sounds. Abdominal: General: Bowel sounds are normal. There is no distension. Palpations: Abdomen is soft. Tenderness: There is no abdominal tenderness. There is no guarding or rebound. Musculoskeletal: General: No swelling. Normal range of motion. Right lower leg: No edema. Left lower leg: No edema. Neurological: Mental Status: She is alert and oriented to person, place, and time. Skin: General: Skin is warm and dry. Psychiatric: Mood and Affect: Mood normal. Behavior: Behavior normal. Vitals and nursing note reviewed. Exam conducted with a sample collector present. Vitals: Estimated body mass index is 33.98 kg/m as calculated from the following: Height as of 11/15/22: 5' 2 . Weight as of this encounter: 185 lb 12.8 oz. BP: 112/74 No LMP recorded. Assessment/Plan Encounter Diagnosis Name Primary? Encounter for fertility planning Patient presents today to discuss fertility. Patient was given lab orders to have obtained. Patient was instructed to call the office once menstrual cycle begins so femara can be called into patients pharmacy. Patient has been instructed to take Femara 5mg on days 3-7 of cycle. On day 21 of cycle patient is to have progesterone labs drawn. Patient was advised to have intercourse on days 12, 14, 16, 18, and 20 of cycle. We will do four rounds of Femara and if patient has not conceived by then, we will perform HSG. Patient has voiced understanding and will call our office for any further questions/concerns. Follow Up: 4 months Documented by Jannette Lowe LPN on behalf of: Bienvenido Collazo DO documented in this encounter [facility] Evaluation note Note Date & Type Note Facility Evaluation note Diagnosis Encounter for fertility planning PCOS (polycystic ovarian syndrome) Polycystic ovaries Insulin resistance Other abnormal glucose documented in this encounter [facility] Summary Purpose Family History No Family History Records FoundNo Family History Records Found Advance Directives No Advanced Directives Records FoundNo Advanced Directives Records Found Additional Source Comments INFORMATION SOURCE (unrecogn ized section and content) DATE CREATED AUTHOR 07/15/2022 [facility] DATE CREATED AUTHOR AUTHOR'S ORGANIZ ATION 01/07/2024 [facility] Reason for Visit (unrecogniz ed section and content) Reason Comments Infertility FOR RECORDS PERTAINING TO PATIENTS WHO ARE OR HAVE BEEN ENROLLED IN A CHEMICAL DEPENDENCY/SUBSTANCEABUSE PROGRAM, SOME INFORMATION MAY BE OMITTED. This clinical summary was aggregated from multiple sources. Caution should be exercised in using it in the provision of clinical care. This summary normalizes information from multiple sources, and as a consequence, information in this document may materially change the coding, format and clinical context of patient data. In addition, data may be omitted in some cases. CLINICAL DECISIONS SHOULD BE BASED ON THE PRIMARY CLINICAL RECORDS. [facility] [employer] [facility]. provides no warranty or guarantee of the accuracy or completeness of information in this document.
[2024-12-15] MEDS: KETOROLAC TROMETHAMINE 60 MG/2 ML VIAL IM (09:57)
== END 2024-12-15 10:02 | disposition home or self-care (01) ==
PROVIDERS: Emergency Provider Emergency Medicine
DX: M54.50 Low back pain, unspecified (principal)
CPT/HCPCS: 72100; 81001; 84703; 96372; 99284; J1885

== ENCOUNTER 2025-03-01 20:09 | Outpatient (REF) | payer OTHER, SELFPAY ==
--- OUTSIDE RECORDS SUMMARY | 2025-03-01 20:32 | XMS_ITS | CCD ---
Author Organization [facility] Care Team Providers Care Desk Manager Name Role Phone ZAY, DR FARIA Admitting Unavailable REQUEST, DR RICHARD LISTED Primary Care Unavaila obed COLLAZO, DR FARIA Attending Unavailable ZAY, DR FARIA Attending Unavailable ZAY, DR FARIA Consulting Unavailable REQUEST, DR NONE LISTED Primary Care Unavaila ble ZAY, DR FARIA Admitting Unavailable ZAY, DR FARIA Consulting Unavailable ZAY, DR FARIA Admitting Unavailable REQUEST, DR RICHARD LISTED Primary Care Unavaila ble ZAY, DR FARIA Attending Unavailable Unavailable Primary Care Provider Unavailabl e BIENVENIDO COLLAZO Attending Unavailable ZAY, BIENVENIDO Attending Unavailable OPHELIAMEETA Attending Unavailable Allergies Allergy Classification Reported Allergen(s) Allergy Type Date of Onset Reaction(s) Facility (2 sources) Robitussin Cough AND Cold Drug allergy (disorder) 4 [facility] (5 sources) Dextromethorphan Drug Allergy 5 Rash [facility] Healthcare (5 sources) guaiFENesin Drug Allergy 7 Itching [facility] Medications Completed/Discontinued Medications Medication Drug Class(es) Dates Sig (Normalized) Sig (Original) citalopram 20 mg oral tablet (2 sources) Serotonin Reuptake Inhibitor Start: 06-05-2023 End: 10-30-2023 take 1 tablet by mouth in the morning citalopram (CeleXA) 20 MG tablet Indications: Depression with anxiety Take 1 tablet (20 mg) by mouth in the morning. 30 tablet 06/05/2023 10/30/2023 Discontinued (Other) FLUoxetine 10 mg oral capsule (3 sources) Serotonin Reuptake Inhibitor Start: 12-09-2023 End: 03-01-2025 take 1 capsule by mouth once daily FLUoxetine (PROzac) 10 MG capsule Indications: Depression with anxiety Take 1 capsule (10 mg) by mouth Daily 30 capsule 11 12/09/2023 03/01/2025 Discontinued 24 hr metFORMIN hydrochloride 500 mg extended release oral tablet (5 sources) Biguanide Start: 10-30-2023 End: 03-01-2025 take 1 tablet by mouth every twenty-four hours at mealtime metFORMIN XR (Glucophage-XR) 500 MG 24 hr tablet Indications: PCOS (polycystic ovarian syndrome) , Insulin resistance Take 1 tablet (500 mg) by mouth in the evening. Take with meals Do not crush, chew, or split. 30 tablet 11 10/30/2023 03/01/2025 Discontinued omeprazole 20 mg delayed release oral capsule (2 sources) Proton Pump Inhibitor Start: 07-04-2023 End: 10-30-2023 omeprazole (PriLOSEC) [address] capsule 1 (one) time each day at the same time 0 07/04/2023 10/30/2023 Discontinued (Other) phentermine hydrochloride 37.5 mg oral tablet (6 sources) Sympathomimetic Amine Anorectic Start: 12-09-2023 End: 03-01-2025 take 1 tablet by mouth before mealtime phentermine (Adipex-P) 37.5 MG tablet Indications: Encounter for weight management Take 1 tablet (37.5 mg) by mouth in the morning. Take before meals. 30 tablet 01/06/2024 03/01/2025 Discontinued Problems Active Problems Problem Classification Problem Date Documented Da te Episodic/Chronic Anxiety disorders (3 sources) Mixed anxiety and depressive disorder; Translations: [Other specified anxiety disorders] Onset: 12-09-2023 12-09-2023 Chronic Other endocrine disorders (2 sources) Polycystic ovary syndrome; Translations: [Polycystic ovarian syndrome] 10-30-2023 Chronic Other nutritional; endocrine; and metabolic disorders (2 sources) Insulin resistance; Translations: [Insulin resistance] 10-30-2023 Chronic Past or Other Problems Problem Classification Problem Date Documented Date Episodic/Chronic Contraceptive and procreative management (11 sources) Encounter for procreative management, unspecified; Translations: [Patient encounter status] Onset: 07-09-2022 Episodic Immunizations and screening for infectious disease (1 [...] 07-12-2022 Dehydroepiandrosterone (DHEA) 339 ng/dL Normal 31-701 [facility] Comment on above: Result Comment: Age 1 - 5 years 0 - 67 6 - 7 years 0 - 110 8 - 10 years 0 - 185 11 - 12 years 0 - 201 13 - 14 years 0 - 318 15 - 16 years 39 - 481 17 - 19 years 40 - 491 >19 years 31 - 701 Performed By: #### Sherie CHISHOLM. #### [facility] [address] [place] [address] Dr. Myrtle Riggs DHEA-SULFATEon 07-10-2022 DHEA-Sulfate 415.0 ug/dL Critically high 84.8-378.0 [facility] Comment on above: Performed By: #### Sherie JORDAN #### [facility] [address] [address] [address] Myrtle Riggs FSHon 07-10-2022 FSH 13.4 mIU/mL Normal [facility] Comment on above: Result Comment: Adul t Female: Follicular phase 3.5 - 12.5 Ovulation phase 4.7 - 21.5 Luteal phase 1.7 - 7.7 Postmenopausal 25.8 - 134.8 Performed By: #### L BCFS #### [facility] [address] [address] [address] Myrtle Riggs LUTEINIZING HORMONE (LH)on 1 LH 9.8 mIU/mL Normal [facility] Comment on above: Result Comment: Adul t Female: Follicular phase 2.4 - 12.6 Ovulation phase 14.0 - 95.6 Luteal phase 1.0 - 11.4 Postmenopausal 7.7 - 58.5 Performed By: #### L BCLH #### [facility] [address] [address] [address] Myrtle Riggs CBC AUTO DIFFon 07-09-2022 BASO # 0.0 103/ul Normal 0.0-0.1 [facility] Comment on above: Performed By: #### C BC #### [facility] [address] [place] [address] Dr. Myrtle Riggs Basophils/100 WBC (Bld) 0.3 % Normal 0.2-2.0 [facility] Comment on above: Performed By: #### C BC #### [facility] [address] [place] [address] Dr. Myrtle Riggs EO # 0.1 103/ul Normal 0.0-0.7 [facility] Comment on above: Performed By: #### C BC #### [facility] [address] [place] [address] Dr. Myrtle Riggs Eosinophils/100 WBC (Bld) 2.5 % Normal 0.9-7.0 [facility] Comment on above: Performed By: #### C BC #### [facility] [address] [place] [address] Dr. Myrtle Riggs Erythrocyte distribution width (RBC) [Ratio] 12.5 % Normal 11.0-15.0 [facility] Comment on above: Performed By: #### C BC #### [facility] [address] [place] [address] Dr. Myrtle Riggs Hematocrit (Bld) [Volume fraction] 40.8 % Normal 36.0-48.0 [facility] Comment on above: Performed By: #### C BC #### [facility] [address] [place] [address] Dr. Myrtle Riggs Hemoglobin (Bld) [Mass/Vol] 13.5 g/dL Normal 12.0-16.0 [facility] Comment on above: Performed By: #### C BC #### [facility] [address] [place] [address] Dr. Myrtle Riggs IG # 0.01 10e3/ul Normal 0.00-0.03 [facility] Comment on above: Performed By: #### C BC #### [facility] [address] [place] [address] Dr. Myrtle Riggs IG % 0.3 % Normal 0.0-0.5 [facility] Comment on above: Performed By: #### C BC #### [facility] [address] [place] [address] Dr. Myrtle Riggs LYMPH # 1.4 103/ul Normal 1.2-3.8 [facility] Comment on above: Performed By: #### C BC #### [facility] [address] [place] [address] Dr. Myrtle Riggs Lymphocytes/100 WBC (Bld) 36.2 % Normal 20.5-60.0 [facility] Comment on above: Performed By: #### C BC #### [facility] [address] [place] [address] Dr. Myrtle Riggs MANUAL DIFF REQ NO Normal [facility] Comment on above: Performed By: #### C BC #### [facility] [address] [place] [address] Dr. Myrtle Riggs MCH (RBC) [Entitic mass] 31.7 pg Normal 26.7-34.0 [facility] Comment on above: Performed By: #### C BC #### [facility] [address] [place] [address] Dr. Myrtle Riggs MCHC (RBC) [Mass/Vol] 33.1 g/dL Normal 29.9-35.2 [facility] Comment on above: Performed By: #### C BC #### [facility] [address] [place] [address] Dr. Myrtle Riggs MCV (RBC) [Entitic vol] 95.8 fL Normal 81.0-99.0 [facility] Comment on above: Performed By: #### C BC #### [facility] [address] [place] [address] Dr. Myrtle Riggs MONO # 0.4 103/ul Normal 0.3-0.8 [facility] Comment on above: Performed By: #### C BC #### [facility] [address] [place] [address] Dr. Myrtle Riggs Monocytes/100 WBC (Bld) 9.6 % Normal 1.7-12.0 [facility] Comment on above: Performed By: #### C BC #### [facility] [address] [place] [address] Dr. Myrtle Riggs NEUT # 2.0 103/ul Normal 1.4-6.5 [facility] Comment on above: Performed By: #### C BC #### [facility] [address] [place] [address] Dr. Myrtle Riggs Neutrophils/100 WBC (Bld) 51.1 % Normal 43.0-75.0 [facility] Comment on above: Performed By: #### C BC #### [facility] [address] [place] [address] Dr. Myrtle Riggs Platelet mean volume (Bld) [Entitic vol] 10.6 fL Normal 9.5-13.5 [facility] Comment on above: Performed By: #### C BC #### [facility] [address] [place] [address] Dr. Myrtle Riggs PLT 297 103/ul Normal 150-450 [facility] Comment on above: Performed By: #### C BC #### [facility] [address] [place] [address] Dr. Myrtle Riggs RBC 4.26 106/ul Normal 4.20-5.40 [facility] Comment on above: Performed By: #### C BC #### [facility] [address] [place] [address] Dr. Myrtle Riggs WBC 4.0 103/ul Normal 4.0-11.0 [facility] Comment on above: Performed By: #### C BC #### [facility] [address] [place] [address] Dr. Myrtle Riggs FREE T4on 07-09-2022 Free T4 [Mass/Vol] 1.00 ng/dL Normal 0.76-1.46 [facility] Comment on above: Performed By: #### F T4 #### [facility] [address] [place] [address] Dr. Myrtle Riggs GLYCOHEMOGLOBIN A1Con 2021 ADA RECOMMENDATION SEE BELOW Normal [facility] Comment on above: Result Comment: ADA RECOMMENDED LIMIT 4.0 - 6.0 ADA THERAPEUTIC TARGET < 7.0 ACTION SUGGESTED > 7.0 Performed By: #### A 1C #### [facility] [address] [place] [address] Dr. Myrtle Riggs Glucose [Mass/Vol] 111 mg/dL Normal [facility] Comment on above: Performed By: #### A 1C #### [facility] [address] [place] [address] Dr. Myrtle Riggs HbA1c (Bld) [Mass fraction] 5.5 % Normal 4.5-6.2 [facility] Comment on above: Performed By: #### A 1C #### [facility] [address] [place] [address] Dr. Myrtle Riggs TSHon 07-09-2022 TSH 0.331 uIU/mL Critically low 0.358-3.740 [facility] Comment on above: Performed By: #### T SH #### [facility] [address] [place] [address] Dr. Myrtle Riggs PAP ACOG PANEL 2: 30 to 65on 03-30-2022 . . Normal [facility] Comment on above: Result Comment: Perf ormed at: WB Performed By: #### [id number] #### [facility] [address] [place] [address] Dr. Myrtle Riggs Age Gdln ACOG Testing 30-65 Normal [facility] Comment on above: Performed By: #### [id number] #### [facility] [address] [place] [address] Dr. Myrtle Riggs DIAGNOSIS: Comment Normal [facility] Comment on above: Result Comment: NEGA TIVE FOR INTRAEPITHELIAL LESION OR MALIGNANCY. REACTIVE CELLULAR CHANGES AND/OR REPAIR ARE PRESENT. Performed at: [facility] Performed By: #### [id number] #### [facility] [address] [place] [address] Dr. Myrtle Riggs Electronically signed by: Comment Normal [facility] Comment on above: Result Comment: Latonya Mensah MD, Pathologist Performed at: [facility] Performed By: #### [id number] #### [facility] [address] [place] [address] Dr. Myrtle Riggs HPV Aptima Negative Normal Negative [facility] Comment on above: Result Comment: This nucleic acid amplification test detects fourteen high-risk HPV types (16,18,31,33,35,39,45,51,52,56,58,59,66,68) without differentiation. Performed at: =G Performed By: #### [id number] #### [facility] [address] [place] [address] Dr. Myrtle Riggs Methodology: Comment Normal [facility] Comment on above: Result Comment: This liquid based ThinPrep(R) pap test was screened with the use of an image guided system. Performed at: WB Performed By: #### [id number] #### [facility] [address] [place] [address] Dr. Myrtle Riggs Note: Comment Normal [facility] Comment on above: Result Comment: The Pap smear is a screening test designed to aid in the detection of premalignant and malignant conditions of the uterine cervix. It is not a diagnostic procedure and should not be used as the sole means of detecting cervical cancer. Both false-positive and false-negative reports do occur. . Performed at: WB Performed By: #### [id number] #### [facility] [address] [place] [address] Dr. Myrtle Riggs Performed by: Comment Normal [facility] Comment on above: Result Comment: Phyllis Feliz, Cigarette Making Examiner (ASCP) Performed at: [facility] Performed By: #### [id number] #### [facility] [address] [place] [address] Dr. Myrtle Riggs Specimen adequacy: Comment Normal [facility] Comment on above: Result Comment: Sati sfactory for evaluation. Endocervical and/or squamous metaplastic cells (endocervical component) are present. Performed at: WB Performed By: #### [id number] #### [facility] [address] [place] [address] Dr. Myrtle Riggs Vital Signs Date Time Vital Sign Value Performing Clinician Faci lity 03-01-2025 15:09-0400 Body mass index (BMI) [Ratio] 34.94 kg/m2 Meeta Butler PA Work Phone: [facility] 03-01-2025 15:09-0400 Body weight 89.47 kg Meeta GALDAMEZ Work Phone: [facility] 03-01-2025 15:09-0400 Diastolic blood pressure 84 mm[Hg] Meeta GALDAMEZ Work Phone: [facility] 03-01-2025 15:09-0400 Systolic blood pressure 112 mm[Hg] Meeta Jacinto PA Work Phone: [facility] 10-30-2023 11:36-0500 Body mass index (BMI) [Ratio] 33.98 kg/m2 Bienvenido Zay DO Work Phone: [facility] 10-30-2023 11:36-0500 Body weight 84.28 kg Bienvenido Zay DO Work Phone: [facility] 10-30-2023 11:36-0500 Diastolic blood pressure 74 mm[Hg] Bienvenido Zay DO Work Phone: [facility] 10-30-2023 11:36-0500 Systolic blood pressure 112 mm[Hg] Bienvenido Zay DO Work Phone: [facility] Healthcare Encounters Encounter Date Encounter Type Care Provider Facility Start: 03-01-2025 End: 03-01-2025 Patient encounter procedure Meeta GALDAMEZ Work Phone: [facility] Start: 03-01-2025 End: 03-01-2025 Periodic preventive med est patient 18-39 yrs Meeta GALDAMEZ Work Phone: [facility] Comment on above: Well woman exam with routine gynecological exam Start: 03-01-2025 End: 03-01-2025 Bamboo flowsheet Meeta GALDAMEZ Work Phone: [facility] Start: 03-01-2025 End: 03-01-2025 Bamboo flowsheet Meeta GALDAMEZ Work Phone: [facility] Start: 01-06-2024 End: 01-06-2024 ambulatory MEETA JACINTO Not Available Start: 12-09-2023 End: 12-09-2023 ambulatory BIENVENIDO COLLAZO Not Available Start: 10-30-2023 End: 10-30-2023 ambulatory BIENVENIDO COLLAZO Not Available Start: 10-30-2023 End: 10-30-2023 Office outpatient visit 15 minutes Bienvenido Collazo DO Work Phone: [facility] Comment on above: Encounter for fertil ity planning; PCOS (polycystic ovarian syndrome); Insulin resistance Start: 07-09-2022 End: 07-10-[address] BIENVENIDO COLLAZO Facility:[facility] Start: 06-13-[address] BIENVENIDO COLLAZO Facility :[facility] Start: 2022 End: [address] BIENVENIDO COLLAZO Facility:[facility] Plan of Treatment Date Care Activity Detail Author Start: 03-07-2026 End: 03-07-2026 Patient encounter procedure 03/07/2026 3:00 PM EDT Office Visit [facility] [address] [place] [id number] Bienvenido Collazo, DO [address] [place] [address] [facility] Start: 03-01-2025 End: 03-01-2025 Patient encounter procedure 03/01/2025 3:00 PM EDT Office Visit [facility] [address] [place] [id number] Meeta Jacinto, PA [address] [place] [address] Arrived [facility] Comment on above: Arrived Start: 06-08-2024 End: 06-08-2024 Patient encounter procedure 06/08/2024 1:00 PM EDT Office Visit [facility] [address] [place] [phone] Bienvenido Collazo, DO [address] [place] [address] [facility] Start: 10-30-2023 End: 10-30-2024 DHEA DHEA Lab Routine PCOS (polycystic ovarian syndrome) Expected: 10/30/2023 (Approximate), Expires: 10/30/2024 [facility] Comment on above: Expected: 10/30/2023 (Approximate), Expires: 10/30/2024 CBC W Auto Different ial panel - Blood CBC and differential Lab Routine PCOS (polycystic ovarian syndrome) Ordered: 10/30/2023 [facility] Comment on above: Ordered: 10/30/2023 Cytology Cervical or vaginal smear or scraping study Pap Smear Pathology and Cytology Routine Well woman exam with routine gynecological exam Ordered: 03/01/2025 [facility] Work Phone: Comment on above: Ordered: 03/01/2025 DHEA-sulfate DHEA-sulfate Lab Routine PCOS (polycystic ovarian syndrome) Ordered: 10/30/2023 [facility] Comment on above: Ordered: 10/30/2023 Follicle stimulating hormone Follicle stimulating hormone Lab Routine PCOS (polycystic ovarian syndrome) Ordered: 10/30/2023 [facility] Comment on above: Ordered: 10/30/2023 hCG, quantitative, hCG, quantitative, Lab Routine PCOS (polycystic ovarian syndrome) Ordered: 10/30/2023 [facility] Work Phone: Comment on above: Ordered: 10/30/2023 Hemoglobin A1c/Hemoglobin.total in Blood Hemoglobin A1c Lab Routine PCOS (polycystic ovarian syndrome) Ordered: 10/30/2023 [facility] Comment on above: Ordered: 10/30/2023 Human papilloma viru s DNA [Presence] in Unspecified specimen by Probe with amplification HPV DNA probe, amplified Microbiology Routine Well woman exam with routine gynecological exam Ordered: 03/01/2025 [facility] Comment on above: Ordered: 03/01/2025 Luteinizing hormone Luteinizing hormone Lab Routine PCOS (polycystic ovarian syndrome) Ordered: 10/30/2023 [facility] Comment on above: Ordered: 10/30/2023 Thyrotropin [Units/volume] in Serum or Plasma TSH Lab Routine PCOS (polycystic ovarian syndrome) Ordered: 10/30/2023 [facility] Comment on above: Ordered: 10/30/2023 Thyroxine (T4) free [Mass/volume] in Serum or Plasma T4, free Lab Routine PCOS (polycystic ovarian syndrome) Ordered: 10/30/2023 [facility] Comment on above: Ordered: 10/30/2023 Payers Date Payer Category Payer Private Health Insurance [employer] [id number] 2022 Medicaid [employer] [place] [id number] 2022-Present [address] [place] [address] [id number] 2022 Medicaid [id number] 1989 Unknown [id number] 1989 Unknown [id number] 1989 Unknown [id number] 1989 Unknown [id number] 1989 Unknown [id number] 1989 Unknown [id number] 1959 Self-pay [id number] 1960 Unknown [id number] Social History Date Type Detail Facility Start: [facility] History of tobacco use Cigarette Smoker [facility] Start: 04-15-2023 End: 09-23-2023 Cigarettes smoked current (pack per day) - Reported 1 [facility] Start: 10-30-2023 End: 01-06-2024 Alcohol intake Current drinker of alcohol (finding) [facility] Start: 04-15-2023 End: 09-23-2023 Tobacco use panel [facility] Start: 09-23-2023 Alcohol Comment 6 or more drin ks on 1 occasion; weekly [facility] Healthcare Start: 1990 Sex Assigned At Not on file N [facility] History of Present illness Narrative 03-01-2025 RUDOLPH Ricks - 03/01/2025 3:00 PM EDT Note Date & Type Note Facility 03-01-2025 History of Presen t illness Narrative Reason for Appointment: Patient ID: Rere Brown is a 34 y.o. female who presents for Well Women Visit Patient presents today for Annual Exam. MEDICATIONS No current outpatient medications ALLERGIES Allergies Allergen Reactions Guaifenesin Itching Dextromethorphan Polistirex Er Rash Other Reaction(s): Hives PROBLEMS Active Ambulatory Problems Diagnosis Date Noted Encounter for infertility 10/10/2023 Depression with anxiety 12/09/2023 Resolved Ambulatory Problems Diagnosis Date Noted No Resolved Ambulatory Problems No Additional Past Medical History HISTORY PAST MEDICAL HISTORY SOCIAL HISTORY No past medical history on file. Social History Tobacco Use Smoking status: Every Day Current packs/day: 1.00 Types: Cigarettes Smokeless tobacco: Not on file Substance Use Topics Alcohol use: Yes Comment: 6 or more drinks on 1 occasion; weekly Drug use: Never FAMILY HISTORY Family History Problem Relation Name Age of Onset Cancer Mother Cancer Father SURGICAL HISTORY Past Surgical History: Procedure Laterality Date SECTION, LOW TRANSVERSE x2 DILATION AND CURETTAGE XR HYSTEROSALPINGOGRAM 2019 REVIEW OF SYSTEMS Review of Systems: Review of Systems Constitutional: Negative. HENT: Negative. Eyes: Negative. Respiratory: Negative. Cardiovascular: Negative. Gastrointestinal: Negative. Genitourinary: Negative. Musculoskeletal: Negative. Skin: Negative. Neurological: Negative. All other systems reviewed and are negative. Hematological: Negative. Endocrine: Negative. Allergic/Immunologic: Negative. OBJECTIVE Objective: Physical Exam Constitutional: Appearance: Normal appearance. She is well-developed. Genitourinary: Vulva normal. Right Adnexa: not tender and no mass present. Left Adnexa: not tender and no mass present. No cervical discharge. Breasts: Breasts are soft. Right: Normal. Left: Normal. HENT: Head: Normocephalic. Nose: Nose normal. Mouth/Throat: Mouth: Mucous membranes are moist. Cardiovascular: Rate and Rhythm: Normal rate and regular rhythm. Pulmonary: Effort: Pulmonary effort is normal. Breath sounds: Normal breath sounds. Abdominal: General: Bowel sounds are normal. There is no distension. Palpations: Abdomen is soft. Tenderness: There is no abdominal tenderness. There is no guarding or rebound. Musculoskeletal: General: No swelling. Normal range of motion. Cervical back: Normal range of motion. Right lower leg: No edema. Left lower leg: No edema. Neurological: General: No focal deficit present. Mental Status: She is alert and oriented to person, place, and time. Skin: General: Skin is warm and dry. Psychiatric: Mood and Affect: Mood normal. Behavior: Behavior normal. Vitals and nursing note reviewed. Exam conducted with a lockstitch tunnel elastic operator present. Vitals: Estimated body mass index is 34.94 kg/m as calculated from the following: Height as of 12/09/23: 5' 3 . Weight as of this encounter: 197 lb 4 oz. BP: 112/84 No LMP recorded (lmp unknown). ASSESSMENT & PLAN ICD-10-CM 1. Well woman exam with routine gynecological exam Z01.419 Pap Smear HPV DNA probe, amplified Annual Exam: Patient presents today for an annual exam. Patient states she is doing well and has no complaints. Pap was obtained without difficulty. Orders Placed This Encounter Procedures HPV DNA probe, amplified Follow Up: Patient is to return in one year for annual unless needed otherwise. Documented by Rissa Castle LPN on behalf of: RUDOLPH Ricks documented in this encounter [facility] History of Present illness Narrative 10-30-2023 Jannette Lowe LPN - 10/30/2023 11:20 AM EST Note Date & Type Note Facility 10-30-2023 History of Presen t illness Narrative Reason for Appointment: Patient ID: Rere Brown is a 33 y.o. female who presents [...] nursing note reviewed. Exam conducted with a lockstitch tunnel elastic operator present. Vitals: Estimated body mass index is [...] Bienvenido Collazo DO documented in this encounter [facility] Healthcare Evaluation note Note Date & Type Note Facility Evaluation note Diagnosis Encounter for fertility planning PCOS (polycystic ovarian syndrome) Polycystic ovaries Insulin resistance Other abnormal glucose documented in this encounter [facility] Evaluation note Note Date & Type Note Facility Evaluation note Diagnosis Well woman exam with routine gynecological exam Routine gynecological examination documented in this encounter [facility] Healthcare Summary Purpose Family History No Family History Records FoundNo Family History Records Found Advance Directives No Advanced Directives Records FoundNo Advanced Directives Records Found Additional Source Comments INFORMATION SOURCE (unrecogn ized section and content) DATE CREATED AUTHOR 07/15/2022 [facility] DATE CREATED AUTHOR AUTHOR'S ORGANIZ ATION 01/07/2024 [facility] Reason for Visit (unrecogniz ed section and content) Reason Comments Infertility Reason Comments Well Women Visit FOR RECORDS PERTAINING TO PATIENTS WHO ARE [...] BE BASED ON THE PRIMARY CLINICAL RECORDS. [facility] [employer] provides no warranty or guarantee of the accuracy or completeness of information in this document.
[2025-03-05 15:08] LABS: Age Gdln ACOG Testing Note (.); HPV Aptima Negative (Negative); IGP, Aptima HPV, rfx 16/18,45 Note (.)
== END 2025-03-01 20:10 | disposition home or self-care (01) ==
LOC: LAB 20:09
PROVIDERS: Visit Provider Physician Assistant
DX: Z01.419 Encounter for gynecological examination (general) (routine) without abnormal findings (principal)
CPT/HCPCS: 87624; 88175